=== PATIENT | male | born 2000 | race Caucasian/White ===

== ENCOUNTER → 2023-03-31 | Outpatient (CLI) | payer OTHER ==
--- NOTE | 2023-04-01 01:46 | EEG ---
ELECTROENCEPHALOGRAM REPORT CLINICAL HISTORY: This is a 23-year-old gentleman with reported multiple seizures over the last 2 months. The video EEG is obtained to evaluate for seizure epileptiform activity. RELEVANT MEDICATION: Keppra. EEG TYPE: A routine 21-channel EEG with video using the 10/20 electrode placement system. DESCRIPTION: Wakefulness and drowsiness are obtained. During awake state, the posterior-dominant rhythm consists of [id number] voltage of 9.5 hertz activity that is well modulated, well sustained. There is no physiological stage 2 sleep architecture. There is no focal slowing. Interictal and ictal is none. ACTIVATION PROCEDURE: Photic stimulation did not evoke a posterior driving response. There is no abnormality during the photic stimulation. Hyperventilation is not performed. CLINICAL INTERPRETATION: This is a normal routine EEG. There is no focal slowing, epileptiform discharge, or seizure on the EEG. A normal routine EEG does not rule out underlying epilepsy. Clinical correlation is recommended. MMMARGARITA / BREEZY: [id number] /
== END ==
LOC: NEUROMAIN 07:59
PROVIDERS: ATTEND Internal Medicine
DX: R56.9 Unspecified convulsions (principal)
CPT/HCPCS: 95816

== ENCOUNTER 2024-01-28 19:46 | Emergency (ER) | payer OTHER ==
[2024-01-28 19:52] VITALS: RESP 18; TEMP 98.2
--- NOTE | 2024-01-28 20:13 | ED ---
General Adult HPI - General Chief complaint: Seizure Stated complaint: Seizure Time Seen by Provider: 01/28/24 19:53 Source: patient, EMS Mode of arrival: EMS Limitations: no limitations - History of Present Illness Initial comments: Dictation was produced using [employer] dictation software. please excuse any grammatical, word or spelling errors. Chief Complaint: 23-year-old male with history of seizures presents to the emergency department seizure History of Present Illness: Patient 23-year-old male he takes multiple seizure medications. He sees Dr. Tirado outpatient. Patient states that he has 1-2 seizures a week. He had a seizure today at his friend's house while they were just taken out. During the seizure friend called EMS patient was brought to the ER. Patient had seizure also yesterday. Prior to starting seizure medications he would have 4-5 seizures a week. States that his symptoms has significantly improved. Patient refusing any other care except for blood work The ROS documented in this emergency department record has been reviewed and confirmed by me. Those systems with pertinent positive or negative responses have been documented in the HPI. All other systems are other negative and/or noncontributory. - Related Data Allergies Allergy/AdvReac Type Severity Reaction Status Date / Time No Known Allergies Allergy Verified 01/28/24 19:52 Review of Systems ROS Statement: Those systems with pertinent positive or pertinent negative responses have been documented in the HPI. ROS Other: All systems not noted in ROS Statement are negative. Past Medical History Past Medical History: Seizure Disorder History of Any Multi-Drug Resistant Organisms: None Reported Smoking Status: Vaper Past Alcohol Use History: None Reported Past Drug Use History: Marijuana General Exam - General Exam Comments Initial Comments: PHYSICAL EXAM: General Impression: Alert and oriented x3, not in acute distress HEENT: Normocephalic atraumatic, extra-ocular movements intact, pupils equal and reactive to light bilaterally, mucous membranes moist. Cardiovascular: Heart regular rate and rhythm Chest: Able to complete full sentences, no retractions, no tachypnea Abdomen: abdomen soft, non-tender, non-distended, no organomegaly Musculoskeletal: Pulses present and equal in all extremities, no peripheral edema Motor: no focal deficits noted Neurological: CN II-XII grossly intact, no focal motor or sensory deficits noted Skin: Intact with no visualized rashes Psych: Normal affect and mood Limitations: no limitations Course Vital Signs 01/28/24 19:47 Temperature 98.2 F Pulse Rate 86 Respiratory 18 Rate Blood Pressure 109/76 O2 Sat by Pulse 96 Oximetry EKG Findings - EKG Comments: EKG Findings:: My EKG interpretation: Ventricular rate 78, sinus rhythm,. 128, QRS 86, QTc 368. No [place] prolongation, no QTC prolongation, no ST or T-wave changes noted. Overall, this EKG is unremarkable Medical Decision Making - Medical Decision Making Was pt. sent in by a medical professional or institution (, PA, SEMICONDUCTOR WAFERS ETCH OPERATOR, urgent care, hospital, or jail...) When possible be specific @ -No Did you speak to anyone other than the patient for history (EMS, parent, family, police, friend...)? What history was obtained from this source @ -No Did you review nursing and triage notes (agree or disagree)? Why? @ -I reviewed and agree with nursing and triage notes Were old charts reviewed (outside hosp., previous admission, EMS record, old EKG, old radiological studies, urgent care reports/EKG's, jail records)? Report findings @ -No old charts were reviewed Differential Diagnosis (chest pain, altered mental status, abdominal pain women, abdominal pain men, vaginal bleeding, musculoskeletal, weakness, fever, dyspnea, syncope, headache, dizziness, GI bleed, back pain, seizure, CVA, palpatations, mental health)? @ -Differential Seizure: Recurrent seizure disorder, febrile seizure, alcohol withdrawal, stimulants, meningitis, encephalitis, intercranial hemorrhage, intracranial tumor, stroke, eclampsia, thyrotoxicosis, hypocalcemia, hyponatremia, hypernatremia, hypomagnesemia, psychogenic, this is not meant to be an all-inclusive list. EKG interpreted by me (3pts min.). @ -None done X-rays interpreted by me (1pt min.). @ -None done CT interpreted by me (1pt min.). @ -None done U/S interpreted by me (1pt. min.). @ -None done What testing was considered but not performed or refused? (CT, X-rays, U/S, labs)? Why? @ -None What meds were considered but not given or refused? Why? @ -None Was smoking cessation discussed for >3mins.? @ -No Were there social determinants of health that impacted care today? How? (Homelessness, low income, unemployed, alcoholism, drug addiction, transportation, low edu. Level, literacy, decrease access to med. care, skilled nursing, rehab)? @ -No Was there de-escalation of care discussed even if they declined (Discuss DNR or withdrawal of care, Hospice)? DNR status @ -No What co-morbidities impacted this encounter? (DM, HTN, Smoking, COPD, CAD, Cancer, CVA, ARF, Chemo, Hep., AIDS, mental health diagnosis, sleep apnea, morbid obesity)? @ -Seizure disorder Was patient admitted / discharged? Hospital course, mention meds given and route, prescriptions, significant lab abnormalities, going to OR and other pertinent info. @ -23-year-old male with seizure disorder presents to the ER for seizure. Vital signs stable. Patient well-appearing. Physical examination is benign. Patient has extensive seizure history. States that has been compliant with his seizure medications. Patient refusing IV fluids and Keppra. He only wants blood work. Did you discuss the management of the patient with other professionals (azul walker i.e. , PA, SEMICONDUCTOR WAFERS ETCH OPERATOR, lab, RT, psych nurse, school social worker, paramedic rn, teacher, aviation tactical readiness officer, housing case manager)? Give summary @ -No Was critical care preformed (if so, how long)? @ -No Undiagnosed new problem with uncertain prognosis? @ -No Drug Therapy requiring intensive monitoring for toxicity (Heparin, Nitro, Insulin, Cardizem)? @ -No Were any procedures done? @ -No Diagnosis/symptom? Acute, or Chronic, or Acute on Chronic? Uncomplicated (without systemic symptoms) or Complicated (systemic symptoms)? @ -Seizure Side effects of treatment? @ -No Exacerbation, Progression, or Severe Exacerbation? @ -No Poses a threat to life or bodily function? How? (Chest pain, [place], [place], pneumonia, PE, COPD, DKA, ARF, appy, cholecystitis, CVA, Diverticulitis, Homicidal, Suicidal, threat to staff... and all critical care pts) @ -yes - Lab Data Result diagrams: 01/28/24 20:10 Lab Results 01/28/24 Range/Units 20:10 Sodium 138 (137-145) mmol/L Potassium 5.0 (3.5-5.1) mmol/L Chloride 103 (98-107) mmol/L Carbon Dioxide 26 (22-30) mmol/L Anion Gap 9 mmol/L BUN 11 (9-20) mg/dL Creatinine 0.77 (0.66-1.25) mg/dL Est GFR (CKD-EPI)AfAm >90 (>60 ml/min/1.73 sqM) Est GFR (CKD-EPI)NonAf >90 (>60 ml/min/1.73 sqM) Glucose 104 H (74-99) mg/dL Calcium 9.5 (8.4-10.2) mg/dL Disposition Clinical Impression: Recurrent seizures Disposition: HOME SELF-CARE Condition: Good Instructions (If sedation given, give patient instructions): Recurrent Seizures in Adults (ED) Additional Instructions: f/u with neurologist Is patient prescribed a controlled substance at d/c from ED?: No Referrals: Georgette Tan MD [Primary Care Provider] - 1-2 days Time of Disposition: 20:13
[2024-01-28 20:44] LABS: African American GFR (CKD) >90 (>60 ml/min/1.73 sqM); Anion Gap 9 mmol/L; Blood Urea Nitrogen 11 mg/dL (9-20); Calcium 9.5 mg/dL (8.4-10.2); Carbon Dioxide 26 mmol/L (22-30); Chloride 103 mmol/L (98-107); Glucose 104 mg/dL (74-99); Non-African American GFR(CKD) >90 (>60 ml/min/1.73 sqM); Sodium 138 mmol/L (137-145)
[2024-01-28 21:08] LABS: Basophils % (A) 0 %; Eosinophils # (A) 0.1 k/uL (0-0.7); Eosinophils % (A) 1 %; HCT 47.5 % (39.0-53.0); HGB 15.6 gm/dL (13.0-17.5); Lymphocytes # (A) 1.3 k/uL (1.0-4.8); Lymphocytes % (A) 12 %; MCH 29.5 pg (25.0-35.0); MCHC 32.8 g/dL (31.0-37.0); MCV 89.9 fL (80.0-100.0); Monocytes # (A) 0.5 k/uL (0-1.0); Monocytes % (A) 5 %; Neutrophils # (A) 8.4 k/uL (1.3-7.7); Neutrophils % (A) 81 %; Platelet Count 261 k/uL (150-450); RBC 5.28 m/uL (4.30-5.90); RDW 12.8 % (11.5-15.5); WBC 10.4 k/uL (3.8-10.6)
[2024-01-28 21:48] VITALS: BP 121/70; PULSE 74
== END 2024-01-28 21:48 | disposition home or self-care (01) ==
LOC: EC 19:46
CPT/HCPCS: 36415; 80048; 85025; 93005; 99284

== ENCOUNTER 2024-01-29 10:21 | Emergency (ER) | payer OTHER ==
[2024-01-29 10:35] LABS: Glucose,Whole Blood 102 mg/dL (70-110)
[2024-01-29 10:36] VITALS: RESP 20; TEMP 98
[2024-01-29] MEDS: LORazepam 2 MG/ML INJ IV STA (10:39)
--- NOTE | 2024-01-29 10:39 | ED ---
General Adult HPI - General Chief complaint: Seizure Stated complaint: Seizure Time Seen by Provider: 01/29/24 10:26 Source: patient, family (aunt), RN notes reviewed Mode of arrival: wheelchair Limitations: no limitations - History of Present Illness Initial comments: Patient is a 23-year-old male present to the emergency department with concern for seizures. Patient has known seizure disorder for the past year and a half. Patient is on Keppra 750 twice daily. Patient states he has not missed any doses. Patient did have a seizure 2 days ago, 2 yesterday and 3 this morning. All short acting lasting 10 to 15 seconds. Patient states he normally gets seizures a couple of times per week. There is seizure history in the family. Patient states he feels lightheaded at this time otherwise does not have specific complaints. - Related Data Home Medications Medication Instructions Recorded Confirmed Ascorbic Acid [Vitamin C] 500 mg PO MOWEFR 01/29/24 01/29/24 Ferrous Sulfate [Feosol] 325 mg PO MOWEFR 01/29/24 01/29/24 diazePAM [Valtoco] 1 spray EA NOSTRIL ONCE PRN 01/29/24 01/29/24 levETIRAcetam [Keppra] 750 mg PO Q12HR 01/29/24 01/29/24 Allergies Allergy/AdvReac Type Severity Reaction Status Date / Time No Known Allergies Allergy Verified 01/28/24 19:52 Review of Systems ROS Statement: Those systems with pertinent positive or pertinent negative responses have been documented in the HPI. ROS Other: All systems not noted in ROS Statement are negative. Constitutional: Denies: fever Eyes: Denies: eye pain ENT: Denies: ear pain Respiratory: Denies: cough Cardiovascular: Denies: chest pain Endocrine: Denies: fatigue Gastrointestinal: Denies: abdominal pain Neurological: Reports: as per HPI. Denies: headache, weakness Past Medical History Past Medical History: Seizure Disorder History of Any Multi-Drug Resistant Organisms: None Reported Smoking Status: Vaper Past Alcohol Use History: None Reported Past Drug Use History: Marijuana General Exam Limitations: no limitations General appearance: alert, in no apparent distress Head exam: Present: atraumatic Eye exam: Present: normal appearance, PERRL, EOMI. Absent: nystagmus ENT exam: Present: normal oropharynx Neck exam: Present: normal inspection. Absent: tenderness Respiratory exam: Present: normal lung sounds bilaterally Cardiovascular Exam: Present: regular rate, normal rhythm GI/Abdominal exam: Present: soft. Absent: tenderness Extremities exam: Present: normal inspection Neurological exam: Present: alert, oriented X3, CN II-XII intact. Absent: motor sensory deficit Expanded Neurological exam: Present: protecting the airway Patient oriented to: Present: person, place, time Speech: Present: fluid speech Cranial nerves: EOM's Intact: Normal Motor strength exam: RUE: 5, LUE: 5, RLE: 5, LLE: 5 Eye Response: (4) open spontaneously Motor Response: (6) obeys commands Verbal Response: (5) oriented Psychiatric exam: Present: normal affect, normal mood Skin exam: Present: normal color Course Vital Signs 01/29/24 01/29/24 01/29/24 10:21 10:34 11:52 Temperature 98.4 F 98.0 F Pulse Rate 90 75 Respiratory 20 20 Rate Blood Pressure 128/85 113/66 O2 Sat by Pulse 97 95 Oximetry EKG Findings - EKG Results: EKG: interpreted by ERMD (Right axis. Prominent T waves.rsr [id number]), sinus rhythm EKG shows: tachycardia Medical Decision Making - Medical Decision Making Was pt. sent in by a medical professional or institution (, PA, MAIN LINE STATION ENGINEER, urgent care, hospital, or care home...) When possible be specific @ -No Did you speak to anyone other than the patient for history (EMS, parent, family, police, friend...)? What history was obtained from this source @ -Patient's aunt is present and helps provide history including number of seizures and duration Did you review nursing and triage notes (agree or disagree)? Why? @ -I reviewed and agree with nursing and triage notes Were old charts reviewed (outside hosp., previous admission, EMS record, old EKG, old radiological studies, urgent care reports/EKG's, care home records)? Report findings @ -Previous labs reviewed and recent visit Differential Diagnosis (chest pain, altered mental status, abdominal pain women, abdominal pain men, vaginal bleeding, weakness, fever, dyspnea, syncope, headache, dizziness, GI bleed, back pain, seizure, CVA, palpatations, mental health, musculoskeletal)? @ -Differential Seizure: Recurrent seizure disorder, febrile seizure, alcohol withdrawal, stimulants, meningitis, encephalitis, intercranial hemorrhage, intracranial tumor, stroke, eclampsia, thyrotoxicosis, hypocalcemia, hyponatremia, hypernatremia, hypomagnesemia, psychogenic, this is not meant to be an all-inclusive list. EKG interpreted by me (3pts min.). @ -As above X-rays interpreted by me (1pt min.). @ -None done CT interpreted by me (1pt min.). @ -None done U/S interpreted by me (1pt. min.). @ -None done What testing was considered but not performed or refused? (CT, X-rays, U/S, labs)? Why? @ -Considered imaging however patient does have history of imaging and multiple previous seizures What meds were considered but not given or refused? Why? @ -None Did you discuss the management of the patient with other professionals (professionals i.e. , PA, MAIN LINE STATION ENGINEER, lab, RT, psych nurse, administrator social welfare, steel wheel engraver, teacher, combat information center officer, watch case polisher)? Give summary @ -Case was discussed with Dr. Reyes with plans for admission Was smoking cessation discussed for >3mins.? @ -No Was critical care preformed (if so, how long)? @ -No Were there social determinants of health that impacted care today? How? (Homelessness, low income, unemployed, alcoholism, drug addiction, transportation, low edu. Level, literacy, decrease access to med. care, senior living, rehab)? @ -No Was there de-escalation of care discussed even if they declined (Discuss DNR or withdrawal of care, Hospice)? DNR status @ -Plan for admission however patient refused and will leave AGAINST MEDICAL ADVICE What co-morbidities impacted this encounter? (DM, HTN, Smoking, COPD, CAD, Canc er, CVA, ARF, Chemo, Hep., AIDS, mental health diagnosis, sleep apnea, morbid obesity)? @ -None Was patient admitted / discharged? Hospital course, mention meds given and route, prescriptions, significant lab abnormalities, going to OR and other pertinent info. @ -Patient presents with 3 short seizures today with a couple in the last couple of days. Patient did have a witnessed seizure in the emergency department lasting under 1 minute. Patient was immediately alert and oriented following this and symptom-free. Patient reevaluated and remains symptom-free. Patient is advised admission secondary to repetitive seizures recently and to have neurology evaluation and monitoring. Despite this patient refuses and will leave AGAINST MEDICAL ADVICE. Patient does demonstrate medical decision making. Aunt is present and tries to encourage patient however he refuses. Undiagnosed new problem with uncertain prognosis? @ -No Drug Therapy requiring intensive monitoring for toxicity (Heparin, Nitro, Insulin, Cardizem)? @ -No Were any procedures done? @ -No Diagnosis/symptom? @ -Seizure Acute, or Chronic, or Acute on Chronic? @ -Acute on chronic Uncomplicated (without systemic symptoms) or Complicated (systemic symptoms)? @ -Default Side effects of treatment? @ -No Exacerbation, Progression, or Severe Exacerbation? @ -Exacerbation of chronic seizure Poses a threat to life or bodily function? How? (Chest pain, [place], [place], pneumonia, PE, COPD, DKA, ARF, appy, cholecystitis, CVA, Diverticulitis, Homicidal, Suicidal, threat to staff... and all critical care pts) @ -Threat to neurological function - Lab Data Result diagrams: 01/29/24 10:30 01/29/24 10:30 Lab Results 01/29/24 01/29/24 01/29/24 Range/Units 10:30 10:30 10:31 WBC 8.5 (3.8-10.6) k/uL RBC 5.73 (4.30-5.90) m/uL Hgb 16.9 (13.0-17.5) gm/dL Hct 52.7 (39.0-53.0) % MCV 92.0 (80.0-100.0) fL MCH 29.6 (25.0-35.0) pg MCHC 32.1 (31.0-37.0) g/dL RDW 12.9 (11.5-15.5) % Plt Count 312 (150-450) k/uL MPV 7.1 Neutrophils % 64 % Lymphocytes % 22 % Monocytes % 8 % Eosinophils % 2 % Basophils % 1 % Neutrophils # 5.5 (1.3-7.7) k/uL Lymphocytes # 1.9 (1.0-4.8) k/uL Monocytes # 0.7 (0-1.0) k/uL Eosinophils # 0.2 (0-0.7) k/uL Basophils # 0.1 (0-0.2) k/uL Sodium 141 (137-145) mmol/L Potassium 4.0 (3.5-5.1) mmol/L Chloride 104 (98-107) mmol/L Carbon Dioxide 22 (22-30) mmol/L Anion Gap 15 mmol/L BUN 12 (9-20) mg/dL Creatinine 0.92 (0.66-1.25) mg/dL Est GFR (CKD-EPI)AfAm >90 (>60 ml/min/1.73 sqM) Est GFR (CKD-EPI)NonAf >90 (>60 ml/min/1.73 sqM) Glucose 106 H (74-99) mg/dL POC Glucose (mg/dL) 102 (70-110) mg/dL POC Glu Senior Patrol Agent ID Shaylee Bryan Calcium 9.9 (8.4-10.2) mg/dL Magnesium 1.8 (1.6-2.3) mg/dL Total Bilirubin 1.3 (0.2-1.3) mg/dL AST 33 (17-59) U/L ALT 19 (4-49) U/L Alkaline Phosphatase 87 (38-126) U/L Total Protein 8.7 H (6.3-8.2) g/dL Albumin 5.5 H (3.5-5.0) g/dL Serum Alcohol <10 mg/dL Disposition Clinical Impression: Recurrent seizures Disposition: LEFT AGAINST MEDICAL ADVICE Instructions (If sedation given, give patient instructions): Recurrent Seizures in Adults (ED) Additional Instructions: You are leaving AGAINST MEDICAL ADVICE. Please follow-up with your primary care physician and neurologist on Tuesday. Return for increasing seizures, illness, headache, weakness, worsening or changing symptoms or any other concerns. Is patient prescribed a controlled substance at d/c from ED?: No Referrals: Georgette Tan MD [Primary Care Provider] - 1-2 days Time of Disposition: 12:02
[2024-01-29 10:43] LABS: Basophils # (A) 0.1 k/uL (0-0.2); Basophils % (A) 1 %; Eosinophils # (A) 0.2 k/uL (0-0.7); Eosinophils % (A) 2 %; HCT 52.7 % (39.0-53.0); HGB 16.9 gm/dL (13.0-17.5); Lymphocytes # (A) 1.9 k/uL (1.0-4.8); Lymphocytes % (A) 22 %; MCH 29.6 pg (25.0-35.0); MCHC 32.1 g/dL (31.0-37.0); Mean Platelet Volume 7.1; Monocytes # (A) 0.7 k/uL (0-1.0); Monocytes % (A) 8 %; Neutrophils # (A) 5.5 k/uL (1.3-7.7); Neutrophils % (A) 64 %; Platelet Count 312 k/uL (150-450); RBC 5.73 m/uL (4.30-5.90); RDW 12.9 % (11.5-15.5); WBC 8.5 k/uL (3.8-10.6)
[2024-01-29] MEDS: levETIRAcetam IV 500 MG/5 ML VIAL IVP STA (10:49)
[2024-01-29 10:59] LABS: ALT 19 U/L (4-49); AST 33 U/L (17-59); African American GFR (CKD) >90 (>60 ml/min/1.73 sqM); Albumin 5.5 g/dL (3.5-5.0); Alcohol <10 mg/dL; Alkaline Phosphatase 87 U/L (38-126); Anion Gap 15 mmol/L; Blood Urea Nitrogen 12 mg/dL (9-20); Calcium 9.9 mg/dL (8.4-10.2); Carbon Dioxide 22 mmol/L (22-30); Chloride 104 mmol/L (98-107); Glucose 106 mg/dL (74-99); Magnesium 1.8 mg/dL (1.6-2.3); Non-African American GFR(CKD) >90 (>60 ml/min/1.73 sqM); Sodium 141 mmol/L (137-145); Total Bilirubin 1.3 mg/dL (0.2-1.3); Total Protein 8.7 g/dL (6.3-8.2)
[2024-01-29 11:53] VITALS: BP 113/66; PULSE 75
== END 2024-01-29 12:32 | disposition left against medical advice (07) ==
LOC: EC 10:21
CPT/HCPCS: 36415; 80053; 80177; 80320; 83735; 85025; 93005; 96374; 96375; 99284

== ENCOUNTER 2024-01-30 03:36 | Observation (INO) | payer OTHER ==
[2024-01-30 03:50] LABS: Glucose,Whole Blood 129 mg/dL (70-110)
--- NOTE | 2024-01-30 04:06 | ED ---
General Adult HPI - General Chief complaint: Seizure Stated complaint: Seizure Time Seen by Provider: 01/30/24 03:57 Source: patient, EMS Mode of arrival: EMS - History of Present Illness Initial comments: Patient is a 23-year-old male with a past medical history of seizure disorder on Keppra presenting today for multiple seizures. Patient has also been evaluated in the ER twice in the last few days for similar. Patient began having seizures about 2 years ago and was first evaluated in [place]. He states he had an EEG done and is not sure what the result was. He has since moved to [place] and sees Dr. Dee outpatient. To currently take 750 mg of Keppra twice daily. States in the last day has had approximately 9 seizures. Over the last 2 weeks he has had increasing frequency of seizures. When he was here yesterday he declined IV medications and was recommended for admission but ultimately left AGAINST MEDICAL ADVICE. States each seizure lasts a few seconds to a few minutes. They have all aborted spontaneously. He does think he hit his head after his most recent 1, on the floor. States that the seizures are consistent with prior seizures he has had. He denies alcohol use or illicit drug use. Does occasionally use marijuana. Denies missed dosages of his medications. Denies fevers chills, changes in vision, new numbness or focal weakness, chest pain, shortness of breath or abdominal pain. Of note pt under increased amount of stress recently due to relationship issues. - Related Data Home Medications Medication Instructions Recorded Confirmed Ascorbic Acid [Vitamin C] 500 mg PO DAILY 01/29/24 01/30/24 Ferrous Sulfate [Iron (65 MG 325 mg PO MOWEFR 01/29/24 01/30/24 Elemental)] diazePAM [Valtoco] 1 spray NASAL ONCE PRN 01/29/24 01/30/24 Previous Rx's Medication Instructions Recorded Acetaminophen Tab [Tylenol] 650 mg PO Q6HR PRN tab 01/30/24 Ibuprofen [Motrin] 400 mg PO Q6HR PRN tab 01/30/24 Lacosamide [Vimpat] 100 mg PO BID 30 Days #60 tab 01/30/24 levETIRAcetam [Keppra] 1,500 mg PO Q12HR #60 tablet 01/30/24 levETIRAcetam [Keppra] 750 mg PO Q12HR #0 tab 01/30/24 Allergies Allergy/AdvReac Type Severity Reaction Status Date / Time No Known Allergies Allergy Verified 01/30/24 08:44 Review of Systems ROS Statement: Those systems with pertinent positive or pertinent negative responses have been documented in the HPI. ROS Other: All systems not noted in ROS Statement are negative. Past Medical History Past Medical History: Seizure Disorder History of Any Multi-Drug Resistant Organisms: None Reported Past Psychological History: ADD/ADHD Smoking Status: Vaper Past Alcohol Use History: None Reported Past Drug Use History: Marijuana General Exam - General Exam Comments Initial Comments: PE: CONSTITUTIONAL: No apparent distress, well appearing SKIN: Warm, dry, no jaundice, hives or petechiae EYES: Pupils are equally round, extraocular movements intact without nystagmus, clear conjunctiva, non-icteric sclera HENT: Normocephalic, palpable hematoma to the right occiput, moist mucus membranes, oropharynx clear without exudates NECK: , Full range of motion, normal appearance, no midline spinal tenderness to palpation, patient able to range neck through full range of motion without midline neck pain, numbness or radiculopathy down extremities PULMONARY: Clear to auscultation without wheezes, rhonchi, or rales, normal excursion, no accessory muscle use and no stridor CARDIOVASCULAR: Regular rate, rhythm, normal S1 and S2. No appreciated murmurs, rubs or gallops. Strong radial pulses with intact distal perfusion. No lower extremity edema GASTROINTESTINAL: Soft, active bowel sounds throughout, non-tender, non- distended, no palpable masses, no rebound or guarding. No hepatosplenomegaly MUSCULOSKELETAL: Extremities have no gross deformity, no edema, redness, or swelling. No calf swelling NEUROLOGIC:_a/o x 3, GCS 15, normal mentation and speech. Moves all extremities x 4 without motor or sensory deficit visual baires grossly intact, no facial droop, clear speech PSYCHIATRIC:_normal mood and affect, thought process is clear and linear Course Vital Signs 01/30/24 01/30/24 01/30/24 03:37 03:57 05:31 Temperature 98.2 F 97.5 F L Pulse Rate 105 H 78 64 Respiratory 15 16 16 Rate Blood Pressure 127/72 100/51 O2 Sat by Pulse 97 96 95 Oximetry Medical Decision Making - Medical Decision Making Was pt. sent in by a medical professional or institution (CHARAN Thurston, POLITICAL SCIENCE FACULTY MEMBER, urgent care, hospital, or penitentiary...) When possible be specific @ -No Did you speak to anyone other than the patient for history (EMS, parent, family, police, friend...)? What history was obtained from this source @ -No Did you review nursing and triage notes (agree or disagree)? Why? @ -I reviewed and agree with nursing and triage notes Were old charts reviewed (outside hosp., previous admission, EMS record, old EKG, old radiological studies, urgent care reports/EKG's, penitentiary records)? Report findings @ Medical records reviewed Differential Diagnosis (chest pain, altered mental status, abdominal pain women, abdominal pain men, vaginal bleeding, weakness, fever, dyspnea, syncope, headache, dizziness, GI bleed, back pain, seizure, CVA, palpatations, mental health, musculoskeletal)? @ -Differential Seizure: Recurrent seizure disorder, febrile seizure, alcohol withdrawal, stimulants, infection, intracranial tumor, stroke, thyrotoxicosis, hypocalcemia, hyponatremia, hypernatremia, hypomagnesemia, psychogenic, this is not meant to be an all-inclusive list. EKG interpreted by me (3pts min.). @ -As above X-rays interpreted by me (1pt min.). @ -None done CT interpreted by me (1pt min.). @No evidence of hemorrhage or mass effect U/S interpreted by me (1pt. min.). @ -None done What testing was considered but not performed or refused? (CT, X-rays, U/S, labs)? Why? @ -None What meds were considered but not given or refused? Why? @Considered IV fluids however patient requested no IV fluids unless absolutely necessary Did you discuss the management of the patient with other professionals (professionals i.e. CHARAN Thursotn, POLITICAL SCIENCE FACULTY MEMBER, lab, RT, psych nurse, secondary social studies teacher, roller mechanic, teacher, navy airspace officer, caser)? Give summary @ -No Was smoking cessation discussed for >3mins.? @ -No Was critical care preformed (if so, how long)? @ -No Were there social determinants of health that impacted care today? How? (Homelessness, low income, unemployed, alcoholism, drug addiction, transportation, low edu. Level, literacy, decrease access to med. care, mcc, rehab)? @ -No Was there de-escalation of care discussed even if they declined (Discuss DNR or withdrawal of care, Hospice)? @ -No What co-morbidities impacted this encounter? (DM, HTN, Smoking, COPD, CAD, Cancer, CVA, ARF, Chemo, Hep., AIDS, mental health diagnosis, sleep apnea, morbid obesity)? @Seizure disorder Was patient admitted / discharged? Hospital course, mention meds given and route, prescriptions, significant lab abnormalities, going to OR and other pertinent info. @Admission This is a 23-year-old male past medical history of seizure disorder on Keppra presenting for recurrent symptoms. On my assessment patient is well-appearing awake, alert, no focal neurologic deficits. I reviewed patient's recent labs done on 01/29/2024. Had CBC, CMP and EKG done. No CK was drawn during that visit. Due to patient stated 9 seizures in the last 24 hours will obtain CK to ensure no signs of rhabdomyolysis in addition to basic labs. Patient does have a palpable hematoma on the right occiput and did hit his head, will additionally obtain CT brain due to increased frequency of seizures and head trauma. Patient agreeable with Keppra load. Prefers to avoid IV fluids as he does not like being hooked up to an IV. I discussed with him that I ultimately will recommend admission due to multiple seizures in the last 24 hours and continuing frequency and worsening of the seizures. CT brain negative for acute process. Labs and imaging reviewed. Grossly within normal limits. Abnormal values not concerning for acute pathology related to presenting complaint. Discussed with patient admission for observation due to increasing frequency of seizures and multiple seizures in the last day. Patient is agreeable with admission. Discussed with Dr. Reyes, kindly accepts for admission, patient admitted in stable condition. Undiagnosed new problem with uncertain prognosis? @ -No Drug Therapy requiring intensive monitoring for toxicity (Heparin, Nitro, Insulin, Cardizem)? @ -No Were any procedures done? @ -No Diagnosis/symptom? @Recurrent seizures Acute, or Chronic, or Acute on Chronic? @ -Acute Uncomplicated (without systemic symptoms) or Complicated (systemic symptoms)? @ -Complicated Side effects of treatment? @ -No Exacerbation, Progression, or Severe Exacerbation? @ -No Poses a threat to life or bodily function? How? (Chest pain, [place], [place], pneumonia, PE, COPD, DKA, ARF, appy, cholecystitis, CVA, Diverticulitis, Homicidal, Suicidal, threat to staff... and all critical care pts) @ -Yes - Lab Data Result diagrams: 01/30/24 04:30 01/30/24 04:30 Lab Results 01/30/24 01/30/24 01/30/24 Range/Units 03:48 04:30 04:30 WBC 8.3 (3.8-10.6) k/uL RBC 5.02 (4.30-5.90) m/uL Hgb 14.8 (13.0-17.5) gm/dL Hct 44.6 (39.0-53.0) % MCV 88.8 (80.0-100.0) fL MCH 29.6 (25.0-35.0) pg MCHC 33.3 (31.0-37.0) g/dL RDW 13.3 (11.5-15.5) % Plt Count 262 (150-450) k/uL MPV 7.5 Neutrophils % 63 % Lymphocytes % 24 % Monocytes % 9 % Eosinophils % 3 % Basophils % 1 % Neutrophils # 5.2 (1.3-7.7) k/uL Lymphocytes # 1.9 (1.0-4.8) k/uL Monocytes # 0.7 (0-1.0) k/uL Eosinophils # 0.2 (0-0.7) k/uL Basophils # 0.1 (0-0.2) k/uL Sodium 138 (137-145) mmol/L Potassium 3.7 (3.5-5.1) mmol/L Chloride 105 (98-107) mmol/L Carbon Dioxide 25 (22-30) mmol/L Anion Gap 8 mmol/L BUN 18 (9-20) mg/dL Creatinine 0.79 (0.66-1.25) mg/dL Est GFR (CKD-EPI)AfAm >90 (>60 ml/min/1.73 sqM) Est GFR (CKD-EPI)NonAf >90 (>60 ml/min/1.73 sqM) Glucose 120 H (74-99) mg/dL POC Glucose (mg/dL) 129 H (70-110) mg/dL POC Glu Junior Network Administrator ID Rhezie Emie Calcium 9.2 (8.4-10.2) mg/dL Magnesium 1.8 (1.6-2.3) mg/dL Total Bilirubin 0.8 (0.2-1.3) mg/dL AST 26 (17-59) U/L ALT 15 (4-49) U/L Alkaline Phosphatase 65 (38-126) U/L Creatine Kinase 89 (55-170) U/L Total Protein 6.9 (6.3-8.2) g/dL Albumin 4.4 (3.5-5.0) g/dL Serum Alcohol <10 mg/dL Disposition Clinical Impression: Recurrent seizures Disposition: ADMITTED IP TO THIS HOSP
[2024-01-30] MEDS: levETIRAcetam IV 3,000 MG in SODIUM CHLORIDE 0.9% 250 ML IVPB ONE (04:27)
[2024-01-30 04:38] LABS: Basophils # (A) 0.1 k/uL (0-0.2); Basophils % (A) 1 %; Eosinophils # (A) 0.2 k/uL (0-0.7); Eosinophils % (A) 3 %; HCT 44.6 % (39.0-53.0); HGB 14.8 gm/dL (13.0-17.5); Lymphocytes # (A) 1.9 k/uL (1.0-4.8); Lymphocytes % (A) 24 %; MCH 29.6 pg (25.0-35.0); MCHC 33.3 g/dL (31.0-37.0); MCV 88.8 fL (80.0-100.0); Mean Platelet Volume 7.5; Monocytes # (A) 0.7 k/uL (0-1.0); Monocytes % (A) 9 %; Neutrophils # (A) 5.2 k/uL (1.3-7.7); Neutrophils % (A) 63 %; Platelet Count 262 k/uL (150-450); RBC 5.02 m/uL (4.30-5.90); RDW 13.3 % (11.5-15.5); WBC 8.3 k/uL (3.8-10.6)
[2024-01-30 04:49] LABS: ALT 15 U/L (4-49); AST 26 U/L (17-59); African American GFR (CKD) >90 (>60 ml/min/1.73 sqM); Albumin 4.4 g/dL (3.5-5.0); Alcohol <10 mg/dL; Alkaline Phosphatase 65 U/L (38-126); Anion Gap 8 mmol/L; Blood Urea Nitrogen 18 mg/dL (9-20); Calcium 9.2 mg/dL (8.4-10.2); Carbon Dioxide 25 mmol/L (22-30); Chloride 105 mmol/L (98-107); Creatine Kinase 89 U/L (55-170); Glucose 120 mg/dL (74-99); Magnesium 1.8 mg/dL (1.6-2.3); Non-African American GFR(CKD) >90 (>60 ml/min/1.73 sqM); Potassium 3.7 mmol/L (3.5-5.1); Sodium 138 mmol/L (137-145); Total Bilirubin 0.8 mg/dL (0.2-1.3); Total Protein 6.9 g/dL (6.3-8.2)
--- NOTE | 2024-01-30 04:58 | CT ---
EXAM: CT Head Without Intravenous Contrast CLINICAL HISTORY: ITS.REASON CT Reason: seizure activity TECHNIQUE: Axial computed tomography images of the head/brain without intravenous contrast. CTDI is 49.2 mGy and DLP is 1154.4 mGy-cm. This CT exam was performed using one or more of the following dose reduction techniques: automated exposure control, adjustment of the mA and/or kV according to patient size, and/or use of iterative reconstruction technique. COMPARISON: No relevant prior studies available. FINDINGS: Brain: No hemorrhage or mass effect. Ventricles: No hydrocephalus. Bones/joints: Unremarkable. Soft tissues: Unremarkable. Sinuses: No air fluid level. Mastoid air cells: Clear. IMPRESSION: No acute hemorrhage, hydrocephalus, or mass effect.
[2024-01-30] MEDS ORDERED: traMADol 50 MG TAB PO PRN (06:48)
[2024-01-30] MEDS ORDERED: ACETAMINOPHEN TAB 325 MG TAB PO PRN (06:48)
[2024-01-30] MEDS ORDERED: NALOXONE 0.4 MG/ML 1 ML VIAL IV PRN (06:48)
[2024-01-30] MEDS ORDERED: IBUPROFEN 400 MG TAB PO PRN (06:48)
[2024-01-30] MEDS ORDERED: DIAZEPAM 10 MG/0.1 ML EA NOSTRIL PRN (06:51)
[2024-01-30] MEDS: FERROUS SULFATE 325 MG TAB PO SCH (10:37)
[2024-01-30] MEDS: FAMOTIDINE 20 MG TAB PO SCH (10:37)
--- NOTE | 2024-01-30 11:25 | P.HPIM ---
History of Present Illness 23-year-old male with history of seizure disorder on Keppra 750 mg twice a day came in with complaints of seizure patient had a witnessed seizure at twice here in the hospital which is a tonic activity without any loss of bowel or bladder continence along with loss of consciousness and my post ictal confusion. Patient is presently alert oriented x 3 patient does not have any anion gap lactic acid was not done patient was given a loading dose of Keppra patient is threatening to leave. Patient had any alcohol abuse or illicit drug use except for occasional use of marijuana. Patient states he is compliant with the medications. REVIEW OF SYSTEMS: All other systems are negative except those mentioned in the HPI PHYSICAL EXAMINATION: GENERAL: The patient is alert and oriented x3, not in any acute distress. Well developed, well nourished. HEENT: Pupils are round and equally reacting to light. EOMI. No scleral icterus. No conjunctival pallor. Normocephalic, atraumatic. No pharyngeal erythema. No thyromegaly. CARDIOVASCULAR: S1 and S2 present. No murmurs, rubs, or gallops. PULMONARY: Chest is clear to auscultation, no wheezing or crackles. ABDOMEN: Soft, nontender, nondistended, normoactive bowel sounds. No palpable organomegaly. MUSCULOSKELETAL: No joint swelling or deformity. EXTREMITIES: No cyanosis, clubbing, or pedal edema. NEUROLOGICAL: Gross neurological examination did not reveal any focal deficits. SKIN: No rashes. Assessment and plan -Breakthrough seizures: Will increase the dose of Keppra to 1500 mg twice a day awaiting recommendations from neurology. -Occasional marijuana use: Counseling was provided -ADD/ADHD outpatient management Patient will need to follow-up with neurology as an outpatient: Past Medical History Past Medical History: Seizure Disorder History of Any Multi-Drug Resistant Organisms: None Reported Past Surgical History: No Surgical Hx Reported Past Psychological History: ADD/ADHD Smoking Status: Vaper Past Alcohol Use History: None Reported Past Drug Use History: Marijuana Medications and Allergies Home Medications Medication Instructions Recorded Confirmed Type Ascorbic Acid [Vitamin C] 500 mg PO DAILY 01/29/24 01/30/24 History Ferrous Sulfate [Feosol] 325 mg PO MOWEFR 01/29/24 01/30/24 History diazePAM [Valtoco] 1 spray NASAL ONCE PRN 01/29/24 01/30/24 History levETIRAcetam [Keppra] 1,500 mg PO Q12HR #60 tablet 01/30/24 Rx Allergies Allergy/AdvReac Type Severity Reaction Status Date / Time No Known Allergies Allergy Verified 01/30/24 08:44 Physical Exam Vitals: Vital Signs Temp Pulse Pulse Resp BP BP Pulse Ox 01/30/24 09:59 81 16 01/30/24 09:20 82 16 118/73 97 01/30/24 08:20 98.2 F 82 16 124/84 01/30/24 05:31 97.5 F L 64 16 100/51 95 01/30/24 03:57 78 16 96 01/30/24 03:37 98.2 F 105 H 15 127/72 97 Intake and Output 01/29/24 01/30/24 01/30/24 22:59 06:59 14:59 Other: Voiding Method Toilet Weight 69.4 kg 69.4 kg Results CBC & Chem 7: 01/30/24 04:30 01/30/24 04:30 Labs: Abnormal Lab Results - Last 24 Hours (Table) 01/30/24 01/30/24 Range/Units 03:48 04:30 Glucose 120 H (74-99) mg/dL POC Glucose (mg/dL) 129 H (70-110) mg/dL Thrombosis Risk Factor Assmnt - Choose All That Apply Any of the Below Risk Factors Present?: No Other Risk Factors: No Thrombosis Risk Factor Assessment Level: Very Low Risk
[2024-01-30] MEDS: LORazepam 2 MG/ML INJ IV STA (11:39)
[2024-01-30 14:13] VITALS: BP 90/55; PULSE 66; RESP 17; TEMP 97.5
--- NOTE | 2024-01-30 14:52 | P.CNNES ---
History of Present Illness Consult date: 01/30/24 Requesting physician: Ai Gardner Reason for Consult: Multiple seizures History of Present Illness: Patient is a 23-year-old male with history of seizure disorder, came to the hospital by ambulance yesterday jd edwards at 3:36 AM for recurrent seizures. EMS flowsheet not available in the chart. Patient's girlfriend was also present on the phone via [employer]. She mentions that patient's seizure started about 1-1/2 years ago after he had "heatstroke", for which he was hospitalized for a day and then released. He was in [place] at that time. He does not know how long after that heatstroke he started having seizures. At present he follows up with Dr. Rivera, had an EEG and MRI performed at his office about a month ago, the results of which is not available. Patient denies any history of childhood seizures or head injuries. He admits to having very strong family history of epilepsy, and is brother, aunt being treated for seizures. Patient currently is on Keppra 750 mg twice daily. He takes medication regularly, does not miss the dose. Patient's girlfriend states that his seizure frequency has got worse in the last 3 days, and he had about 12 or 13 seizures before he came to the hospital. In fact he has been coming to the ER almost daily, 1 time he just had some blood test, other time he signed out AGAINST MEDICAL ADVICE. Now he came back with seizure. Patient was planning to sign out AGAINST MEDICAL ADVICE, but EEG was recommended, and he agreed to stay. Patient states that sometimes he sees black dots in the vision before seizure. He states that when he is stressed, he gets seizures and can happen at random as well. Patient's girlfriend states that the seizures can happen while he is sleeping as well. She states that his whole body tenses up like a "blank" sometimes he stops breathing during it. Vital signs on arrival blood pressure 127/72 pulse rate 105 temperature 98.2. Blood test shows normal CBC, CMP. Blood alcohol level is less than 10. CT head showed no acute intracranial process. I personally reviewed CT head, agree with the findings. Patient had an EEG performed previously on 03/31/2023, which was normal. No focal, lateralized or epileptiform activity was seen. Home medications include Keppra 750 mg every 12 hours, ferrous sulfate, Valtoco. Patient vapes nicotine. He smokes marijuana, but not every day. Denies any alcohol or any other drug use. Patient at present is not working. He used to work as a power line lineman. Patient had 3 seizures this morning, while he was in observation unit. While I was examining him, he had a seizure. It consists of mild arrhythmic tremoring of the body, with closing his eyes, unresponsive. I spoke to patient's girlfriend, who states that patient had been under a lot of stress in the last 3 days since they had split. At present he is living with his aunt. Prior to that, he was living with his girlfriend. Patient does have couple brothers and parents. Patient denies any anxiety or depression. Review of Systems As above. Patient is postictal at this time. Past Medical History Past Medical History: Seizure Disorder History of Any Multi-Drug Resistant Organisms: None Reported Past Surgical History: No Surgical Hx Reported Past Psychological History: ADD/ADHD Smoking Status: Vaper Past Alcohol Use History: None Reported Past Drug Use History: Marijuana Medications and Allergies Home Medications Medication Instructions Recorded Confirmed Type Ascorbic Acid [Vitamin C] 500 mg PO DAILY 01/29/24 01/30/24 History Ferrous Sulfate [Feosol] 325 mg PO MOWEFR 01/29/24 01/30/24 History diazePAM [Valtoco] 1 spray NASAL ONCE PRN 01/29/24 01/30/24 History levETIRAcetam [Keppra] 1,500 mg PO Q12HR #60 tablet 01/30/24 Rx Allergies Allergy/AdvReac Type Severity Reaction Status Date / Time No Known Allergies Allergy Verified 01/30/24 08:44 Physical Examination - Vital Signs Vital Signs: Vital Signs Temp Pulse Pulse Resp BP BP Pulse Ox 01/30/24 12:14 74 16 107/71 98 01/30/24 09:59 81 16 01/30/24 09:20 82 16 118/73 97 01/30/24 08:20 98.2 F 82 16 124/84 01/30/24 05:31 97.5 F L 64 16 100/51 95 01/30/24 03:57 78 16 96 01/30/24 03:37 98.2 F 105 H 15 127/72 97 Intake and Output 01/29/24 01/30/24 01/30/24 22:59 06:59 14:59 Other: Voiding Method Toilet Weight 69.4 kg 69.4 kg Patient is a young male, in no acute distress. Patient has a very flat affect. Patient is alert awake oriented to time place and person. Speech and language functions are normal. Patient can name and repeat very well. No aphasia or dysarthria. Attention, concentration and fund of knowledge is adequate. On cranial nerve examination, pupils are equal, round and reacting to light, visual baires are full on confrontation, with no neglect on double simultaneous stimulation. Extraocular muscles are intact with no nystagmus. Face is symmetric, tongue protrudes to the midline. Palatal elevation and sensation normal, hearing and shoulder shrug normal, facial sensation normal. On muscle strength testing, there is no pronator drift. Patient did not cooperate with testing, complaining of generalized weakness. Deep tendon reflexes are symmetric but hypoactive and plantars are flat. Sensory to touch is equal with no neglect on double simultaneous stimulation. Cerebellar function showed no ataxia for [id number] testing. No dysdiadochokinesia. No ataxia for [id number] testing on either side. Tone and bulk of muscles normal. Gait deferred.. On general examination, there is no carotid bruit or murmur, S1-S2 audible. Chest is clear on consultation. Abdomen is soft nontender. No organomegaly, bowel sounds present. Peripheral pulses are present. No peripheral edema. Results - Laboratory Findings CBC and BMP: 01/30/24 04:30 01/30/24 04:30 Abnormal Lab Findings: Abnormal Labs 01/30/24 01/30/24 03:48 04:30 Glucose 120 H POC Glucose (mg/dL) 129 H Assessment and Plan Assessment: * Recurrent seizures. Uncertain if patient has epileptic seizures, or nonepileptic. Patient does not have much postictal state. Patient's seizures frequency is worse when he is stressed. Patient is under a lot of stress since he split with his girlfriend 3 days ago. Rule out nonepileptic seizures * Marijuana use * Vapes Plan: * Patient has been taking Keppra 750 mg twice daily, taking it regularly at home. Patient has received 3 g of Keppra loading dose yesterday in the ER. Patient has multiple seizures today, therefore probably failed Keppra. * We will start Vimpat 200 mg IV x 1 dose, followed by 100 mg twice daily. Patient cannot go home. He has to be seizure-free for 24 hours before he can go home. Patient states that he will sign out AMA. * Stat EEG was done, which was normal EEG during wakefulness, drowsiness and stage II sleep. No focal, lateralized or epileptiform activity was seen. No seizure was recorded. * Patient informed of [place] state law of no driving unless seizure-free for 6 months, climbing ladders, operating dangerous machinery or unsupervised swimming. Patient to follow-up with his neurologist outpatient to follow-up on his EEG and MRI. * Thank you for the consult. Addendum: 2:46 PM Came in to see patient for follow-up, when he was having seizure, with his head deviated to the right, but his eyes were in the midline. He was having tremoring of the body, with increased intensity. It lasted for about a minute. Subsequently patient was postictal. We will give Ativan 2 mg IV x 1 dose. Start Vimpat as soon as possible. Consider transfer to ICU. Patient at present postictally is fully oriented. Patient may benefit from long-term EEG monitoring to evaluate for epileptic versus nonepileptic seizures.
[2024-01-30] MEDS ORDERED: LORazepam 2 MG/ML INJ IV PRN (14:54)
[2024-01-30] MEDS: Lacosamide IV (ages 17+ yrs) 200 MG/20 ML ML IVP SCH (15:18)
[2024-01-30] MEDS ORDERED: LACOSAMIDE 50 MG TABLET PO SCH (21:00)
[2024-01-30] MEDS ORDERED: Lacosamide IV (ages 17+ yrs) 200 MG/20 ML ML IVP SCH (21:00)
--- NOTE | 2024-01-31 16:50 | EEG ---
ELECTROENCEPHALOGRAM REPORT PREAMBLE: This is a 23-year-old male with recurrent seizures. At 11:23 a.m., the patient had a witnessed seizure lasting approximately 30 seconds. The patient received 2 mg Ativan just before EEG was started. EEG FINDINGS: This is a 21-channel digital EEG recorded with video component, utilizing 10/20 international system with referential and bipolar montages. Background consists of well developed, well regulated, low to moderate amplitude activity in 10 hertz alpha. Background is posterior dominant and is reactive to eye opening and closing. The patient was drowsy during most of the study with appearance of bilaterally symmetric theta frequency rhythm. Stage 2 sleep was attained during the second half of the study with presence of vertex waves, sleep spindles, and K complex. No focal or generalized epileptiform activity was seen. No electrographic seizure was recorded. Photic driving response was not clearly seen. IMPRESSION: This is a normal EEG during wakefulness, drowsiness, and stage 2 sleep. No focal, lateralized, or epileptiform activity was seen. MMODL / IJN: [id number] /
--- NOTE | 2024-02-01 09:12 | P.DS ---
Providers Date of admission: 01/30/24 06:49 Attending physician: Marisol Reyes MD Consults: 01/30/24 06:48 Consult Physician Routine Consulting Provider: Dinesh Aragon Consult Reason/Comments: Multiple seizures Do you want consulting provider notified?: Yes, Notify in am Primary care physician: [facility] Course: Patient is admitted for seizures secondary to have seizures patient was started on Vimpat and increase the dose of Keppra to 1500 twice a day. Patient was subsequently transferred to ICU because of warrant of seizures. EEG did not show any significant seizure activity. Patient left AGAINST MEDICAL ADVICE with prescriptions for Vimpat and increase the dose of Keppra but provide Plan - Discharge Summary Discharge Rx Participant: No New Discharge Prescriptions: New levETIRAcetam [Keppra] 750 mg PO Q12HR #0 tab Ibuprofen [Motrin] 400 mg PO Q6HR PRN tab PRN Reason: Mild Pain Or Fever > 100.5 Lacosamide [Vimpat] 100 mg PO BID 30 Days #60 tab levETIRAcetam [Keppra] 1,500 mg PO Q12HR #60 tablet Acetaminophen Tab [Tylenol] 650 mg PO Q6HR PRN tab PRN Reason: Mild Pain Or Fever > 100.5 Continue Ferrous Sulfate [Iron (65 MG Elemental)] 325 mg PO MOWEFR Ascorbic Acid [Vitamin C] 500 mg PO DAILY diazePAM [Valtoco] 1 spray NASAL ONCE PRN PRN Reason: Seizures Discontinued levETIRAcetam [Keppra] 750 mg PO Q12HR Discharge Medication List Ascorbic Acid [Vitamin C] 500 mg PO DAILY 01/29/24 [History] Ferrous Sulfate [Iron (65 MG Elemental)] 325 mg PO MOWEFR 01/29/24 [History] diazePAM [Valtoco] 1 spray NASAL ONCE PRN 01/29/24 [History] Acetaminophen Tab [Tylenol] 650 mg PO Q6HR PRN tab 01/30/24 [Rx] Ibuprofen [Motrin] 400 mg PO Q6HR PRN tab 01/30/24 [Rx] Lacosamide [Vimpat] 100 mg PO BID 30 Days #60 tab 01/30/24 [Rx] levETIRAcetam [Keppra] 1,500 mg PO Q12HR #60 tablet 01/30/24 [Rx] levETIRAcetam [Keppra] 750 mg PO Q12HR #0 tab 01/30/24 [Rx] Follow up Appointment(s)/Referral(s): Georgette Tan MD [Primary Care Provider] - 3 Days Discharge Disposition: LEFT AGAINST MEDICAL ADVICE
== END 2024-01-30 17:54 | disposition left against medical advice (07) ==
LOC: EC 03:36 → 1SOBS 06:49 → 3SCARD 14:31 → 2SICU 15:50
PROVIDERS: ADMIT Internal Medicine; ATTEND Internal Medicine
DX: G40.909 Epilepsy, unspecified, not intractable, without status epilepticus (principal); Z53.29 Procedure and treatment not carried out because of patient's decision for other reasons; F17.290 Nicotine dependence, other tobacco product, uncomplicated; F12.90 Cannabis use, unspecified, uncomplicated; F90.9 Attention-deficit hyperactivity disorder, unspecified type; F43.9 Reaction to severe stress, unspecified; Z79.899 Other long term (current) drug therapy; Z82.0 Family history of epilepsy and other diseases of the nervous system
CPT/HCPCS: 96376; 96375 ×2; 96374; 99285; 36415; 95816; 80053; 82550; 83735; 85025; 70450; G0378 ×2; G0480; J2060; J1953; C9254; 80320